=== PATIENT | female | born 1995 | race Caucasian/White ===

== ENCOUNTER 2018-03-10 08:29 | Emergency (ER) | payer BC, OTHER ==
[2018-03-10 08:29] VITALS: BMI 27.3
[2018-03-10] MEDS ORDERED: Sodium Chloride 0.9% 1,000 ML IV STA (08:57)
[2018-03-10] MEDS ORDERED: Sodium Chloride 0.9% 1,000 ML ONE (08:59)
[2018-03-10 09:24] LABS: BASO % 0.5 % (0.0-2.0); EOS # 0.1 K/uL (0.0-0.7); EOS % 1.4 % (0.0-4.0); HEMOGLOBIN 16.3 g/dL (11.0-16.0); LYMPH # 2.3 K/uL (1.0-4.3); LYMPH % 30.6 % (20.0-40.0); MEAN CELL VOLUME 83.8 fL (81.0-99.0); MEAN CORPUSCULAR HEMOGLOBIN 29.4 pg (27.0-31.0); MEAN CORPUSCULAR HGB CONC 35.1 g/dL (33.0-37.0); MEAN PLATELET VOLUME 7.1 fL (7.2-11.7); MONO # 0.5 K/uL (0.0-0.8); MONO % 7.2 % (0.0-10.0); NEUT # 4.5 K/uL (1.8-7.0); NEUT % 60.3 % (50.0-75.0); NRBC % 0.1 % (0.0-2.0); RBC 5.55 Mil/uL (3.80-5.20); RED CELL DISTRIBUTION WIDTH 13.2 % (11.5-14.5); WHITE BLOOD COUNT 7.4 K/uL (4.8-10.8)
--- NOTE | 2018-03-10 09:25 | C.PDOC ---
History Of Present Illness patient c/o left temporal headache for the last 3 days that are not being relieved by Exedrin. Patient denies h/o migraine headaches. Patient describe pain as throbbing, associated with photophobia and phonophobia. Patient denies fever/extremity weakness/numbness/ nausea/vomiting/dizziness. Time Seen by Provider: 03/10/18 08:49 Chief Complaint (Nursing): Headache History Per: Patient History/Exam Limitations: no limitations Onset/Duration Of Symptoms: Days (3) Current Symptoms Are (Timing): Still Present Severity: Moderate Pain Scale Rating Of: 5 Quality: Other (throbbing) Associated Symptoms: Photophobia. denies: Blurred Vision, Nausea, Vomiting, Extremity Weakness Recent travel outside of the [place]: No Past Medical History Reviewed: Historical Data, Nursing Documentation, Vital Signs Vital Signs: Last Vital Signs Temp 98.7 F 03/10/18 10:29 Pulse 92 H 03/10/18 10:29 Resp 20 03/10/18 10:29 BP 119/73 03/10/18 10:29 Pulse Ox 100 03/10/18 12:09 Family History: States: Unknown Family Hx - Social History Hx Tobacco Use: No Hx Alcohol Use: No Hx Substance Use: No - Immunization History Hx Tetanus Toxoid Vaccination: Yes Hx Influenza Vaccination: Yes Hx Pneumococcal Vaccination: Yes Review Of Systems Except As Marked, All Systems Reviewed And Found Negative. Physical Exam - Physical Exam Appears: Well, Non-toxic, No Acute Distress Skin: Normal Color, Warm, Dry Head: Atraumatic, Normacephalic Eye(s): bilateral: Normal Inspection, PERRL, EOMI Neck: Normal ROM, Supple Chest: Symmetrical, No Tenderness Cardiovascular: Rhythm Regular, No Edema Respiratory: Normal Breath Sounds, No Rales, No Rhonchi, No Wheezing Gastrointestinal/Abdominal: Bowel Sounds, Soft, No Tenderness Back: Normal Inspection Extremity: Normal ROM, No Tenderness, No Pedal Edema Neurological/Psych: Oriented x3, Normal Speech, Normal Cognition, Normal Cranial Nerves, Normal Motor, Normal Sensation ED Course And Treatment - Laboratory Results Result Diagrams: 03/10/18 09:18 03/10/18 09:18 O2 Sat by Pulse Oximetry: 100 - CT Scan/US CT head Other Rad Studies (CT/US): Read By Radiologist, Radiology Report Reviewed CT/US Interpretation: Accession No. : [id number]. Patient Name / ID : BRIGETTE STOUT / [id number]. Exam Date : 03/10/2018 10:58:30 ( Approved ). Study Comment : Sex / Age : F / 22Y. Creator : Tay Brown MD. Dictator : Tay Brown MD. Drywaller : Web Press Jogger : Tay Brown MD. Approver2 : Report Date : 03/10/2018 11:40:38. My Comment : . PROCEDURE: CT HEAD WITHOUT CONTRAST. HISTORY: [place], left baptism headache x 3 days. COMPARISON: None available. TECHNIQUE: Axial computed tomography images were obtained through the head/brain without intravenous contrast. Radiation dose: Total exam DLP = 974.54 mGy-cm. This CT exam was performed using one or more of the following dose reduction techniques: Automated exposure control, adjustment of the mA and/or kV according to patient size, and/or use of iterative reconstruction technique. FINDINGS: HEMORRHAGE: No intracranial hemorrhage. BRAIN: No mass effect or edema. No atrophy or chronic microvascular ischemic changes. VENTRICLES: Unremarkable. No hydrocephalus. CALVARIUM: Unremarkable. PARANASAL SINUSES: Unremarkable as visualized. No significant inflammatory changes. MASTOID AIR CELLS: Unremarkable as visualized. No inflammatory changes. OTHER FINDINGS: None. IMPRESSION: No evidence of acute intracranial hemorrhage mass effect or midline shift. No CT evidence of sinusitis or mastoiditis. Progress Note: Plan: labs, CT head, IVF, Reglan IV. On re-evaluation patient doesn't feel better. Toradol [address] head was read as negative. On the second re-evaluation patient feels better, no longer c/o headache, has no neuro deficit and is stable to be d/c home with PMD follow up. Disposition - Disposition Disposition: HOME/ ROUTINE Disposition Time: 12:20 Condition: IMPROVED Additional Instructions: Follow up with your PMD within 2-3 days. Return to ED if feel worse. Prescriptions: Acetaminophen/Butalbital/Caf [Fioricet] 1 tab PO TID PRN #20 tab PRN Reason: Headache Instructions: Headache, Adult Forms: [facility] (Belarusian) - Clinical Impression Clinical Impression: Headache
[2018-03-10 09:27] LABS: HCG,QUALITATIVE URINE NEGATIVE (NEGATIVE)
[2018-03-10 09:29] LABS: SQUAMOUS EPITHIAL < 1 /hpf (0-5); URINE BILIRUBIN NEGATIVE (NEGATIVE); URINE BLOOD NEGATIVE (NEGATIVE); URINE CLARITY Clear (Clear); URINE COLOR Straw (YELLOW); URINE GLUCOSE (UA) NORMAL (Normal); URINE LEUKOCYTE ESTERASE NEG Leu/uL (Negative); URINE PROTEIN NEGATIVE (NEGATIVE); URINE UROBILINOGEN NORMAL mg/dL (0.2-1.0)
[2018-03-10 09:42] LABS: ALB/GLOB RATIO 1.4 (1.0-2.1); ALBUMIN 4.5 g/dL (3.5-5.0); ALT/SGPT 40 U/L (9-52); AST/SGOT 32 U/L (14-36); BLOOD UREA NITROGEN 13 mg/dL (7-17); CALCIUM 9.6 mg/dl (8.6-10.4); GFR AFRICAN-AMERICAN > 60; GFR NON-AFRICAN AMERICAN > 60
--- NOTE | 2018-03-10 11:42 | CT ---
PROCEDURE: CT HEAD WITHOUT CONTRAST. HISTORY: [place], left hinduism headache x 3 days COMPARISON: None available. TECHNIQUE: Axial computed tomography images were obtained through the head/brain without intravenous contrast. Radiation dose: Total exam DLP = 974.54 mGy-cm. This CT exam was performed using one or more of the following dose reduction techniques: Automated exposure control, adjustment of the mA and/or kV according to patient size, and/or use of iterative reconstruction technique. FINDINGS: HEMORRHAGE: No intracranial hemorrhage. BRAIN: No mass effect or edema. No atrophy or chronic microvascular ischemic changes. VENTRICLES: Unremarkable. No hydrocephalus. CALVARIUM: Unremarkable. PARANASAL SINUSES: Unremarkable as visualized. No significant inflammatory changes. MASTOID AIR CELLS: Unremarkable as visualized. No inflammatory changes. OTHER FINDINGS: None. IMPRESSION: No evidence of acute intracranial hemorrhage mass effect or midline shift. No CT evidence of sinusitis or mastoiditis.
[2018-03-10 12:33] VITALS: BP 116/68; PULSE 82; RESP 18; TEMP 98.3
[2018-03-10 15:56] VITALS: O2SAT 100
== END 2018-03-10 12:42 | disposition home or self-care (01) ==
LOC: C.ER 08:29
DX: R51 Headache (principal)
CPT/HCPCS: 70450; 80053; 81001; 83735; 84703; 85025; 96365; 96375; 99285; J1885; J2765; J7040

== ENCOUNTER 2018-06-16 10:29 | Emergency (ER) | payer OTHER ==
[2018-06-16 10:29] VITALS: BMI 27.3
[2018-06-16 10:44] VITALS: BP 130/78; PULSE 84; RESP 18; TEMP 98.4; O2SAT 98
--- NOTE | 2018-06-16 11:56 | C.PDOC ---
History Of Present Illness 22yo female, presents to the emergency department with complaints of swelling and redness to the left cheek since yesterday. Pt states she has acne, and while trying to squeeze the area, the whole area became swollen. She denies fever, nausea/vomiting. Time Seen by Provider: 06/16/18 10:49 Chief Complaint (Nursing): Abnormal Skin Integrity History Per: Patient History/Exam Limitations: no limitations Current Symptoms Are (Timing): Still Present Past Medical History Reviewed: Historical Data, Nursing Documentation, Vital Signs Vital Signs: Last Vital Signs Temp 98.4 F 06/16/18 10:42 Pulse 84 06/16/18 10:42 Resp 18 06/16/18 10:42 BP 130/78 06/16/18 10:42 Pulse Ox 98 06/16/18 12:30 Family History: States: No Known Family Hx - Social History Hx Tobacco Use: No Hx Alcohol Use: No Hx Substance Use: No - Immunization History Hx Tetanus Toxoid Vaccination: Yes Hx Influenza Vaccination: No Hx Pneumococcal Vaccination: No Review Of Systems Constitutional: Negative for: Fever, Chills Skin: Positive for: Other (swelling and redness left cheek) Physical Exam - Physical Exam Appears: Non-toxic, No Acute Distress Skin: Warm, Dry, Other (erythema and swelling of left cheek and lower eyelid. No abscess or drainage.) Head: Atraumatic, Normacephalic Eye(s): bilateral: Normal Inspection, PERRL, EOMI Nose: Normal Oral Mucosa: Moist Lips: Normal Appearing Neck: Normal ROM Respiratory: No Accessory Muscle Use (no acute respiratory distress) Extremity: Normal ROM, No Deformity Neurological/Psych: Oriented x3, Normal Speech ED Course And Treatment O2 Sat by Pulse Oximetry: 98 Medical Decision Making Medical Decision Making: Clindamycin po ordered. Patient is stable to be d/c home on oral Clinda. Disposition - Disposition Disposition: HOME/ ROUTINE Disposition Time: 11:54 Condition: STABLE Additional Instructions: Follow up wiith your PMD within 1-2 days. Return to ED if feel worse. Prescriptions: Clindamycin [Cleocin] 300 mg PO Q6 #28 cap Instructions: Cellulitis (Skin Infection), Adult (DC) Forms: [facility] ([place]ian) - Clinical Impression Clinical Impression: Cellulitis - Scribe Statement The provider has reviewed the documentation as recorded by the Scribe (Radha Steve) All medical record entries made by the Scribe were at my direction and personally dictated by me. I have reviewed the chart and agree that the record accurately reflects my personal performance of the history, physical exam, medical decision making, and the department course for this patient. I have also personally directed, reviewed, and agree with the discharge instructions and disposition.
== END 2018-06-16 11:59 | disposition home or self-care (01) ==
LOC: C.ER 10:29
DX: L03.211 Cellulitis of face (principal)